=== PATIENT | male | born 1960 | race Caucasian/White ===

== ENCOUNTER 2018-10-08 08:10 | Emergency (ER) | payer BC ==
[~2018-10-08] VITALS: Ht 190.5 cm; Wt 108.9 kg
[2018-10-08] MEDS ORDERED: AMLO10 PO (08:38)
[2018-10-08] MEDS ORDERED: LOSARTAN-HCTZ1 EAC2 PO (08:38)
[2018-10-08 08:46] LABS: BASOPHILS ABSOLUTE AUTO 0.07 K/mm3 (0.00-0.23); BASOPHILS PERCENT AUTO 1 % (0-2); EOSINOPHILS ABSOLUTE AUTO 0.34 K/mm3 (0.00-0.68); EOSINOPHILS PERCENT AUTO 4 % (0-6); Hematocrit 46.7 % (37.0-53.0); Hemoglobin 15.8 g/dL (13.5-17.5); IMMATURE GRAN ABSOLUTE AUTO 0.02 K/mm3 (0.00-0.10); IMMATURE GRAN PERCENT AUTO 0 % (0-1); LYMPHOCYTES ABSOLUTE AUTO 2.09 K/mm3 (0.84-5.20); LYMPHOCYTES PERCENT AUTO 26 % (21-46); MONOCYTES PERCENT AUTO 11 % (4-13); Mean Corpuscular HGB 30.4 pg (26.0-34.0); Mean Corpuscular HGB Conc 33.8 g/dL (31.5-36.5); Mean Corpuscular Volume 90 fL (80-100); Mean Platelet Volume 9.5 fL (9.1-12.4); NEUTROPHILS ABSOLUTE AUTO 4.55 K/mm3 (1.96-9.15); NEUTROPHILS PERCENT AUTO 57 % (41-73); Platelet Count 228 K/mm3 (150-400); RDW Standard Deviation 39.6 fL (35.1-46.3); White Blood Cell Count 7.97 K/mm3 (4.00-11.30)
[2018-10-08 09:04] LABS: Alanine Aminotransfer (ALT/SGP 42 U/L (12-78); Albumin, Blood 4.1 g/dL (3.4-5.0); Albumin/Globulin Ratio 1.2 (0.8-1.8); Alk Phos 128 U/L (50-136); Anion Gap 6 mmol/L (6-16); Aspartate Aminotrans (AST/SGOT 36 U/L (12-37); Bilirubin, Total 0.6 mg/dL (0.1-1.0); Blood Urea Nitrogen 11 mg/dL (8-24); Bun/Creatinine Ratio 12.2 (12.0-20.0); CO2, Blood 26 mmol/L (21-32); Calcium, Blood 8.9 mg/dL (8.5-10.1); Chloride, Blood 107 mmol/L (98-108); Globulin, Blood 3.4 g/dL (2.2-4.0); Glomerular Filtration Rate >60 (60-); Glucose, Blood 108 mg/dL (70-99); Potassium, Blood 3.7 mmol/L (3.5-5.5); Sodium, Blood 139 mmol/L (136-145); Total Protein, Blood 7.5 g/dL (6.4-8.2); Troponin I <0.015 ng/mL (0.000-0.040)
== END 2018-10-08 11:26 | disposition home or self-care (01) ==
LOC: ER 08:10
PROVIDERS: Emergency Medicine
DX: R55 Syncope and collapse (principal); R42 Dizziness and giddiness; I10 Essential (primary) hypertension; Z79.899 Other long term (current) drug therapy
CPT/HCPCS: 36415; 71046; 80053; 84484; 85025; 93005; 93010; 93225; 93226; 99284-25

== ENCOUNTER 2018-11-29 08:35 | Day surgery (SDC) | payer BC, OTHER ==
[~2018-11-29] VITALS: Ht 188 cm; Wt 113.0 kg
[~2018-11-29 08:35] MED LIST: AMLO10 PO; LOSARTAN-HCTZ1 EAC2 PO
[2018-11-29] MEDS ORDERED: IBUPROFEN200 MG PO (09:03)
[2018-11-29] MEDS ORDERED: FISH OIL 1,001000 MG PO (09:03)
--- NOTE | 2018-11-29 14:26 | NUR ---
SUMMARY: PT HAD UNEVENTFUL POST PROCEDURE COURSE. TOLERATING PO FLUIDS AND FOOD WITHOUT DIFFICULTY. ABLE TO AMBULATE WITHOUT DIFFICULTY. TR BAND DEFLATED PER POLICY AT APPROPRIATE TIME PER MD ORDERS - NO BLEEDING OR SWELLING NOTED. CMS TO RIGHT HAND REMAINED INTACT THROUGHOUT ENTIRE STAY. CAP REFILL BRISK. NO BLEEDING OR SWELLING NOTED. REVIEWED DISCHARGE INSTRUCTIONS WITH PATIENT AND GIRLFRIEND - BOTH OF WHOM VERBALIZE UNDERSTANDING OF ALL. GIRLFRIEND WILL BE WITH PATIENT TONIGHT AT HOME FOR MONITORING. IV D/C TIP INTACT PRIOR TO DISCHARGE. PT DISCHARGED HOME AMBULATORY AT THIS TIME.
== END 2018-11-29 14:38 | disposition home or self-care (01) ==
LOC: MHTC 08:35
DX: Z01.810 Encounter for preprocedural cardiovascular examination (principal); I25.10 Atherosclerotic heart disease of native coronary artery without angina pectoris; R55 Syncope and collapse; I35.0 Nonrheumatic aortic (valve) stenosis; I38 Endocarditis, valve unspecified; I10 Essential (primary) hypertension; E78.5 Hyperlipidemia, unspecified; R73.03 Prediabetes; Z79.899 Other long term (current) drug therapy
CPT/HCPCS: 85347; 93454; 93571; 99152; 99153; C1769; C1887; J1644; J2250; J3010; J7030; Q9967

== ENCOUNTER 2018-12-22 20:45 | Inpatient (IN) | payer BC, OTHER ==
[~2018-12-22] VITALS: Ht 190.5 cm; Wt 108.3 kg
[~2018-12-22 20:45] MED LIST changes: +FISH OIL 1,001000 MG PO; +IBUPROFEN200 MG PO
[2018-12-22] MEDS ORDERED: Bisoprolol-Hct1 EAC1 PO (21:20)
[2018-12-22 21:21] LABS: BASOPHILS ABSOLUTE AUTO 0.06 K/mm3 (0.00-0.23); BASOPHILS PERCENT AUTO 1 % (0-2); EOSINOPHILS ABSOLUTE AUTO 0.41 K/mm3 (0.00-0.68); EOSINOPHILS PERCENT AUTO 6 % (0-6); Hematocrit 42.6 % (37.0-53.0); Hemoglobin 14.4 g/dL (13.5-17.5); IMMATURE GRAN ABSOLUTE AUTO 0.01 K/mm3 (0.00-0.10); IMMATURE GRAN PERCENT AUTO 0 % (0-1); LYMPHOCYTES PERCENT AUTO 35 % (21-46); MONOCYTES ABSOLUTE AUTO 0.96 K/mm3 (0.16-1.47); MONOCYTES PERCENT AUTO 13 % (4-13); Mean Corpuscular HGB 30.8 pg (26.0-34.0); Mean Corpuscular HGB Conc 33.8 g/dL (31.5-36.5); Mean Corpuscular Volume 91 fL (80-100); NEUTROPHILS ABSOLUTE AUTO 3.42 K/mm3 (1.96-9.15); NEUTROPHILS PERCENT AUTO 46 % (41-73); Platelet Count 199 K/mm3 (150-400); RDW Coefficient Variation 12.7 % (11.7-14.2); RDW Standard Deviation 41.9 fL (35.1-46.3); Red Blood Cell Count 4.68 M/mm3 (4.30-5.90); White Blood Cell Count 7.46 K/mm3 (4.00-11.30)
[2018-12-22 21:38] LABS: Alanine Aminotransfer (ALT/SGP 35 U/L (12-78); Albumin, Blood 3.6 g/dL (3.4-5.0); Alk Phos 119 U/L (50-136); Anion Gap 8 mmol/L (6-16); Aspartate Aminotrans (AST/SGOT 26 U/L (12-37); Bilirubin, Total 0.3 mg/dL (0.1-1.0); Blood Urea Nitrogen 18 mg/dL (8-24); Bun/Creatinine Ratio 15.7 (12.0-20.0); CO2, Blood 25 mmol/L (21-32); Calcium, Blood 8.5 mg/dL (8.5-10.1); Chloride, Blood 111 mmol/L (98-108); Creatinine, Blood 1.15 mg/dL (0.60-1.20); Globulin, Blood 3.5 g/dL (2.2-4.0); Glomerular Filtration Rate >60 (60-); Glucose, Blood 98 mg/dL (70-99); Potassium, Blood 3.6 mmol/L (3.5-5.5); Sodium, Blood 144 mmol/L (136-145); Total Protein, Blood 7.1 g/dL (6.4-8.2)
[2018-12-23] MEDS ORDERED: ASPI81CH PO (00:17)
[2018-12-23 05:17] LABS: Hematocrit 40.3 % (37.0-53.0); Hemoglobin 13.6 g/dL (13.5-17.5); Mean Corpuscular HGB 30.2 pg (26.0-34.0); Mean Corpuscular HGB Conc 33.7 g/dL (31.5-36.5); Mean Corpuscular Volume 89 fL (80-100); Mean Platelet Volume 10.1 fL (9.1-12.4); Platelet Count 171 K/mm3 (150-400); RDW Coefficient Variation 12.6 % (11.7-14.2); RDW Standard Deviation 41.3 fL (35.1-46.3); Red Blood Cell Count 4.51 M/mm3 (4.30-5.90); White Blood Cell Count 6.69 K/mm3 (4.00-11.30)
[2018-12-23 05:49] LABS: Alanine Aminotransfer (ALT/SGP 32 U/L (12-78); Albumin, Blood 3.3 g/dL (3.4-5.0); Albumin/Globulin Ratio 1.1 (0.8-1.8); Alk Phos 108 U/L (50-136); Anion Gap 8 mmol/L (6-16); Aspartate Aminotrans (AST/SGOT 27 U/L (12-37); Bilirubin, Total 0.8 mg/dL (0.1-1.0); Blood Urea Nitrogen 14 mg/dL (8-24); Bun/Creatinine Ratio 15.2 (12.0-20.0); CO2, Blood 23 mmol/L (21-32); Calcium, Blood 8.2 mg/dL (8.5-10.1); Chloride, Blood 112 mmol/L (98-108); Creatinine, Blood 0.92 mg/dL (0.60-1.20); Globulin, Blood 3.1 g/dL (2.2-4.0); Glomerular Filtration Rate >60 (60-); Glucose, Blood 91 mg/dL (70-99); Potassium, Blood 3.6 mmol/L (3.5-5.5); Sodium, Blood 143 mmol/L (136-145); Total Protein, Blood 6.4 g/dL (6.4-8.2)
[2018-12-23 05:51] LABS: Troponin I 0.11 ng/mL (0.000-0.040)
--- NOTE | 2018-12-23 06:46 | NUR ---
CHEST PAIN PATIENT STATED THAT HIS CHEST PAIN WAS A 0-2/10 THROUGHOUT MOST OF THE NIGHT. THIS CHEST PAIN WAS, "THE PAIN I NORMALLY HAVE." HOWEVER, AT APPROX 0545 PATIENT STARTED COMPLAINING OF CHEST PAIN THAT WAS A 6/10. PATIENT ALSO STATED THAT THE PAIN WAS, "HARD TO DISCRIBE, IT'S JUST DOESN'T FEEL NORMAL." PATIENT UNABLE TO PROVIDE A FURTHER DISCRIPTION OF HIS CHEST PAIN. HE STATED THAT HE HAD PAIN THROUGHOUT HIS CHEST AND UP THE LEFT SIDE OF HIS JAW. NO SIGNFICANT CHANGES ON TELE NOTED DURING THIS TIME. PATIENT PROVIDED WITH FENTANYL WITH MINIMAL RELEIF, PATIENT REPORTED THE FENTANYL MADE HIM FEEL VERY DIZZY. PATIENT THEN PROVIDED WIITH SUBLINQUAL NITRO WITH MINIMAL RELEIF WELL. MAALOX GIVEN NEXT. AFTER MAALOX WAS PROVIDED PATIENT STATED THAT HIS PAIN WAS A "1/10, ALMOST NOT EVEN THERE ANYMORE." PATIENT INFORMED TO NOTIFY RN OF ANY OTHER CHEST PAIN EPISODES. WILL CONTINUE TO MONITOR PATIENT.
--- NOTE | 2018-12-23 06:54 | NUR ---
ADMIT NOTE/SHIFT SUMMARY PATIENT PLEASENT AND COOPERATIVE UPON ADMIT. PATIENT ABLE TO TRANSFER SELF FROM THE GURNEY TO THE BED WITH SBA. PATIENT'S SIGNIFICANT OTHER PRESENT UPON ADMIT FOR A SHORT PERIOD OF TIME. PATIENT ORIENTED TO THE ROOM, UNIT, AND CALL LIGHT. PATIENT APPEARED TO SLEEP WELL THROUGHOUT THE REST OF THE NIGHT AFTER ADMIT WAS COMPLETED UNTIL THE EPISODE OF CHEST PAIN. (SEE PREVIOUS NOTE). PATIENT NOW STATING CHEST PAIN IS ALMOST GONE ENTIRELY. PATIENT CURRENTLY RESTING IN BED AND DENIES ANY NEEDS. VITAL SIGNS CHARTED. WILL CONTINUE TO MONITOR PATIENT AND REPORT TO ONCOMING RN.
[2018-12-23 14:09] LABS: Troponin I 0.197 ng/mL (0.000-0.040)
--- NOTE | 2018-12-23 18:35 | NUR ---
TRANSFER TO 361 PT TRANSFERED VIA W/C. REPORT CALLED TO MADISON ABRAHAM. PT AGREEABLE TO MOVE. CONTINUE POT.
--- NOTE | 2018-12-24 06:46 | NUR ---
a+o, npo for procedure today, call light in reach, was able to sleep after being placed on 2L O2 via nc, saline locked, bsr given to returning day shift
[2018-12-24 07:25] LABS: International Normalized Ratio 1.06; Prothrombin Time Results 11.2 Sec (9.7-11.5)
--- NOTE | 2018-12-24 17:14 | NUR ---
SUMMARY PT RESTING IN BED WATCHING TV, PT HAS BEEN PLEASANT AND COOPERATIVE WITH CARE, PT IS INDEPENDENT IN THE ROOM, POSSIBY GOING TO THE EDUCATIONAL TECHNOLOGY COORDINATOR THIS EVENING, DINNER TO BE HELD, PT UPDATED, IF HE DOES NOT GO TONIGHT, PLAN WILL BE TO GO IN THE MORNING, VSS, NO ACUTE CHANGES, WILL CONT TO MONITOR
--- NOTE | 2018-12-25 07:21 | NUR ---
a+o, waiting for procedure, call light in reach, 2L via nc, saline locked, bsr provided to day nurse
--- NOTE | 2018-12-25 14:59 | NUR ---
PATIENT TO MANUFACTURING RECRUITER PATIENT TRANSFERED TO [facility] FOR [facility]EDURE. PATIENT WILL BE IN PCU AFTER PROCEDURE. PATIENT BELONGINS TRANSFERD TO PCU ROOM. PATIENT'S GIRLFRIEND IS AWARE OF ROOM CHANGE.
--- NOTE | 2018-12-25 16:15 | NUR ---
PT BROUGHT TO PCU 8 VIA GURNEY FROM THE [facility]ART C[facility], HE IS A/OX3, PLEASANT AND COOPERATIVE WITH CARE, AMBULATED TO THE BATHROOM INDEPT. HE IS INFUSING AGRASTAT ORDERED, IV SITE IS CLEAR THIS IS TO RUN 12 HRS PER REPORT. HE NEEDS A VALVE REPLACED, WILL BE TRANSFERING UP TO [facility] WHEN WE GET A ROOM. CALL LIGHT IN REACH, TR BAND IS CLEAR NO NUMBNESS OR TINGLING.
--- NOTE | 2018-12-25 18:17 | NUR ---
PT STATES HE FEELS A BIT SOB, LUCIAN WHEN HE SLEEPS. PLACED HIM ON ONE LITER 02 HE STATES THAT HELPS. VS REMAIN STABLE. NO COMPLAINTS. CALL LIGHT IN REACH.
--- NOTE | 2018-12-25 19:58 | NUR ---
AGGROSTAT DOSING WHEN RN ENTERED ROOM AGGROSTAT WAS RUNNING AT 19.5 MLS/HR. DOUBLE CHECKED WITH AGGROSTAT DOSING CHART IN [facility] ROOM THAT BASED ON WEIGHT THAT WAS THE CORRECT DOSE. BOTTLE BOOTH ATTENDANT JORGE SONI VERIFIED WITH THIS RN THAT IT WAS THE CORRECT DOSING PER THE CHART. VERIFIED WITH PHARMACY AND WAS INFORMED THAT BASED OF PATIENT'S SPECIFIC WIEGHT OF 110 KG THE COURRECT DOSING SHOULD BE 19.8 MLS/HR. DOSING CHANGED. PER PHARMACY'S INSTRUCTION. CHARGE NURSE JORGE SONI AWARE OF CHANGE MADE TO AGGROSTAT GTT. WILL CONTINUE TO MONITOR.
--- NOTE | 2018-12-25 23:45 | NUR ---
Report recieved from Corazon Hayward RN. Pt with VSS. R wrist site free from hematoma, pain, or s/sx bleed. will continue to monitor.
--- NOTE | 2018-12-25 23:56 | NUR ---
UPDATE: PATIENT PLEASENT AND COOPERATIVE. PATIENT APPEARS TO HAVE NAPPED ON AND OFF THROUGHOUT THE NIGHT SO FAR. PATIENT HAS COMPLAINED OF SOME MILD CHEST PAIN AND REQUESTED MAALOX, PATIENT STATED IT HAS HELPED HIS PAIN BEFORE DURING HIS STAY. MAALOX PROVIDED. PATIENT CURRENTLY SITTING UP IN BED, PATIENT STATES IT HELPS TO RELIEVE HIS CHEST PAIN. AGGROSTAT RUNNING PER ORDERS. TO STOP AT 0345, HEPARIN GTT TO BE INITIATED ONCE AGGROSTAT IS COMPLETE PER DR. LEVY. ANGIO ACCESS SITE CONTINUES TO HAVE THE TR BAND ON AT THIS TIME. 10 CC OF AIR HAS BEEN REMOVED. AIR STILL PRESENT IN TR BAND. NO SIGNS OF BLEEDING OR HEMATOMA FORMATION AT SITE NOTED. ARMBOARD IN PLACE. VITAL SIGNS CHARTED. REPORT GIVEN TO LEIGH TAYLOR. BRANDON HAS ASSESSED ANGIO SITE WITH THIS RN.
--- NOTE | 2018-12-26 03:49 | NUR ---
Pt fully recovered at 0030, tr band removed at 0200. no s/sx bleed or hematoma. aggrastat stopped at 0345 per orders. pt with heprin gtt infusing 13u/kg/hr 24.7ml/hr dry weight 95kg verified with LEIGH Galan.
--- NOTE | 2018-12-26 06:47 | NUR ---
Shift Summary No acute changes this shift. VSS. no apparent sign of distress. Pt denies chest pain at this time. Pt states he has some epigastric pain that has been relieved with positional changes. TR band fully recovered and removed from R Radial site this shift. No bleeding or hematoma noted. Pt remains with armboard and verbalized understanding of wrist restriction. Pt able to make needs known, uses call light appropriately. Heprin gtt started this shift. APTT to be drawn at 1000 this am. No changes on this shift to rate. Pt remains alert and oriented, no changes from initial assessment. Will continue to monitor.
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
--- NOTE | 2018-12-26 16:24 | NUR ---
PT TAKEN BY TRANSPORT.
== END 2018-12-26 16:20 | disposition short-term general hospital (02) | DRG 251 ==
LOC: ER 20:45 → MEDS 20:46 → PCU 20:46 → MEDS 12-23 → PCU 12-25 14:55
PROVIDERS: Emergency Medicine; Internal Medicine Cardiovascular Disease; ADMIT Internal Medicine
PROC: 02C03ZZ Extirpation of Matter from Coronary Artery, One Artery, Percutaneous Approach (ICD-10-PCS; principal; 2018-12-25)
PROC: B2111ZZ Fluoroscopy of Multiple Coronary Arteries using Low Osmolar Contrast (ICD-10-PCS; 2018-12-25)
DX: I21.4 Non-ST elevation (NSTEMI) myocardial infarction (principal); Q23.0 Congenital stenosis of aortic valve; I25.10 Atherosclerotic heart disease of native coronary artery without angina pectoris; I10 Essential (primary) hypertension; R00.1 Bradycardia, unspecified; E11.9 Type 2 diabetes mellitus without complications; E78.5 Hyperlipidemia, unspecified; K21.9 Gastro-esophageal reflux disease without esophagitis
CPT/HCPCS: 36415; 71046; 74176; 76705; 80053; 82550; 83690; 84484; 85025; 85027; 85347; 85610; 85730; 86850; 86900; 86901; 92973; 93005; 93010; 93454; 96361; 96372; 96374; 96375; 96376; 99152; 99153; 99285-25; A9270; C1757; C1769; C1887; C1894; C9113; G0378; J1644; J1650; J2250; J3010; J3246; J7030; Q9967

== ENCOUNTER 2019-04-18 11:17 | Day surgery (SDC) | payer OTHER ==
[~2019-04-18 11:17] MED LIST changes: +ASPI81CH PO; +Bisoprolol-Hct1 EAC1 PO
[2019-04-18] MEDS ORDERED: ASPI81CH PO (12:34)
[2019-04-18] MEDS ORDERED: Ziac 5-6.25 MG1 EACH PO (12:34)
[2019-04-18] MEDS ORDERED: Metoprolol Succ25 MG PO (12:35)
[2019-04-18] MEDS ORDERED: ELIQUIS5 MG PO (12:35)
[2019-04-18] MEDS ORDERED: DILT60 PO (12:37)
[2019-04-18] MEDS ORDERED: TAMS.4ER PO (12:37)
[2019-04-18] MEDS ORDERED: ATOR40TA PO (12:38)
[2019-04-18] MEDS ORDERED: NITR.4SL SL (12:39)
--- NOTE | 2019-04-18 13:46 | NUR ---
PT VERBALIZED UNDERSTANDING OF WRITTEN AND VERBAL D/C INST. IV REMOVED. PT TAKEN OUT OF THE HRT CENTER VIA W/C.
== END 2019-04-18 12:00 | disposition home or self-care (01) ==
LOC: MHTC 11:17
DX: I48.0 Paroxysmal atrial fibrillation (principal); I48.92 Unspecified atrial flutter; I10 Essential (primary) hypertension; I25.10 Atherosclerotic heart disease of native coronary artery without angina pectoris; I38 Endocarditis, valve unspecified; I25.2 Old myocardial infarction; E78.5 Hyperlipidemia, unspecified; R73.03 Prediabetes; Z79.899 Other long term (current) drug therapy; Z79.82 Long term (current) use of aspirin; Z79.01 Long term (current) use of anticoagulants; Z95.5 Presence of coronary angioplasty implant and graft
CPT/HCPCS: 92960; 99152; J2250; J3010; J7030

== ENCOUNTER 2023-07-08 04:45 | Emergency (ER) | payer OTHER ==
[~2023-07-08] VITALS: Ht 190.5 cm; Wt 113.4 kg
[~2023-07-08 04:45] MED LIST changes: +AMLODIPINE BES2.5 MG PO; +ATOR40TA PO; +DILT60 PO; +ELIQUIS5 MG PO; +LISI20 PO; +METO50ER PO; +NITR.4SL SL; +NITRO DUR TOP; +OMEP20ER PO; +TAMS.4ER PO; +ZESTRIL40 M2 PO; +Ziac 5-6.25 MG1 EACH PO
[2023-07-08 05:07] LABS: BASOPHILS ABSOLUTE AUTO 0.06 K/mm3 (0.00-0.23); BASOPHILS PERCENT AUTO 1 % (0-2); EOSINOPHILS ABSOLUTE AUTO 0.34 K/mm3 (0.00-0.68); EOSINOPHILS PERCENT AUTO 4 % (0-6); Hematocrit 46.7 % (37.0-53.0); Hemoglobin 15.9 g/dL (13.5-17.5); IMMATURE GRAN ABSOLUTE AUTO 0.01 K/mm3 (0.00-0.10); IMMATURE GRAN PERCENT AUTO 0 % (0-1); LYMPHOCYTES PERCENT AUTO 26 % (21-46); MONOCYTES ABSOLUTE AUTO 0.99 K/mm3 (0.16-1.47); MONOCYTES PERCENT AUTO 12 % (4-13); Mean Corpuscular HGB 30.7 pg (26.0-34.0); Mean Corpuscular Volume 90 fL (80-100); Mean Platelet Volume 9.5 fL (9.1-12.4); NEUTROPHILS ABSOLUTE AUTO 4.61 K/mm3 (1.96-9.15); NEUTROPHILS PERCENT AUTO 57 % (41-73); Platelet Count 177 K/mm3 (150-400); RDW Coefficient Variation 12.3 % (11.7-14.2); RDW Standard Deviation 40.4 fL (35.1-46.3); Red Blood Cell Count 5.18 M/mm3 (4.30-5.90); White Blood Cell Count 8.11 K/mm3 (4.00-11.30)
[2023-07-08 05:45] LABS: Albumin, Blood 3.7 g/dL (3.4-5.0); Bilirubin, Total 0.4 mg/dL (0.1-1.0); Bun/Creatinine Ratio 14.5 (12.0-20.0); Calcium, Blood 8.8 mg/dL (8.5-10.1); Creatinine, Blood 0.83 mg/dL (0.60-1.20); Globulin, Blood 3.8 g/dL (2.2-4.0); Potassium, Blood 4.2 mmol/L (3.5-5.5); Total Protein, Blood 7.5 g/dL (6.4-8.2)
[2023-07-08 08:30] VITALS: BP 151/100
[2023-07-08] MEDS ORDERED: OMEP20ER PO (09:25)
== END 2023-07-08 09:38 | disposition home or self-care (01) ==
LOC: ER 04:45
PROVIDERS: Student in an Organized Health Care Education/Training Program
DX: R07.89 Other chest pain (principal); I10 Essential (primary) hypertension; I25.10 Atherosclerotic heart disease of native coronary artery without angina pectoris; I25.2 Old myocardial infarction; I48.91 Unspecified atrial fibrillation; K21.9 Gastro-esophageal reflux disease without esophagitis; Z95.1 Presence of aortocoronary bypass graft; Z95.2 Presence of prosthetic heart valve; Z79.01 Long term (current) use of anticoagulants; Z79.82 Long term (current) use of aspirin; Z79.899 Other long term (current) drug therapy
CPT/HCPCS: 71046; 80053; 83690; 83880; 84484; 85025; 93005; 93010; 99285-25; A9270

== ENCOUNTER → 2023-08-08 | Outpatient (CLI) | payer OTHER ==
[2023-08-14 12:39] LABS: Stool Occult Bld Immuno 1 Negative (NEGATIVE)
== END | disposition home or self-care (01) ==
LOC: LAB 19:00 → LAB SHORT 19:00
PROVIDERS: Family Medicine
DX: Z12.11 Encounter for screening for malignant neoplasm of colon (principal)
CPT/HCPCS: G0328